=== PATIENT | male | born 1965 | race Caucasian/White ===

== ENCOUNTER 2020-03-05 12:46 | Outpatient (CLI) | payer BC ==
--- NOTE | 2020-03-05 14:04 | RAD ---
LEFT FOOT 3 VIEWS: Date: 03/05/2020 HISTORY: Foot pain. FINDINGS: Tarsals appear unremarkable. Tarsometatarsal joints are unremarkable. There are moderate degenerative changes at the first MTP joint with narrowing, mild spurring, and sub chondral cystic changes. The other MTP joints are unremarkable. IP joints are unremarkable. 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 POS: AH
== END 2020-03-05 12:47 | disposition home or self-care (01) ==
LOC: SCSRAD 12:46
PROVIDERS: ATTEND Internal Medicine Rheumatology
DX: M79.672 Pain in left foot (principal); M19.072 Primary osteoarthritis, left ankle and foot